=== PATIENT | male | born 1960 | race Caucasian/White ===

== ENCOUNTER → 2016-12-18 | Outpatient (CLI) | payer OTHER ==
[~2016-12-18] MED LIST: LIPITOR TAB 1010 MG PO; MECLIZINE HCL25 MG PO
== END ==
LOC: EMI 09:51
DX: M48.02 Spinal stenosis, cervical region (principal); M25.78 Osteophyte, vertebrae; M99.41 Connective tissue stenosis of neural canal of cervical region
CPT/HCPCS: 72141

== ENCOUNTER → 2017-02-16 | Outpatient (CLI) | payer OTHER | LOC: CT 14:30 | DX: F17.210 Nicotine dependence, cigarettes, uncomplicated (principal) | CPT/HCPCS: G0297 ==

== ENCOUNTER → 2017-03-06 | Day surgery (SDC) | payer OTHER ==
[~2017-03-06] VITALS: Ht 180.3 cm; Wt 63.5 kg
== END | disposition home or self-care (01) ==
LOC: OR 07:07
PROVIDERS: Internal Medicine Gastroenterology
PROC: 0DBH8ZZ Excision of Cecum, Via Natural or Artificial Opening Endoscopic (ICD-10-PCS; principal; 2017-03-06 10:30)
DX: Z12.11 Encounter for screening for malignant neoplasm of colon (principal); D12.0 Benign neoplasm of cecum; K57.30 Diverticulosis of large intestine without perforation or abscess without bleeding; J45.909 Unspecified asthma, uncomplicated; M19.90 Unspecified osteoarthritis, unspecified site; G89.29 Other chronic pain; K64.1 Second degree hemorrhoids; F17.210 Nicotine dependence, cigarettes, uncomplicated; Z88.6 Allergy status to analgesic agent; Z88.8 Allergy status to other drugs, medicaments and biological substances; Z79.899 Other long term (current) drug therapy; Z87.19 Personal history of other diseases of the digestive system
CPT/HCPCS: J7030